=== PATIENT | male | born 1975 | race Caucasian/White ===

== ENCOUNTER 2024-02-09 04:38 | Day surgery (SDC) | payer OTHER ==
[2024-02-08 12:19] VITALS: BMI 27.4
[2024-02-09 15:21] VITALS: RESP 15
[2024-02-09 15:22] VITALS: BP 111/70; PULSE 64; TEMP 98
== END 2024-02-09 15:28 | disposition home or self-care (01) ==
LOC: JASU-ENDO 04:38
PROVIDERS: ATTEND Student in an Organized Health Care Education/Training Program
PROC: 0DBN8ZX Excision of Sigmoid Colon, Via Natural or Artificial Opening Endoscopic, Diagnostic (ICD-10-PCS; principal; 2024-02-09 14:15)
DX: Z12.11 Encounter for screening for malignant neoplasm of colon (principal); D12.5 Benign neoplasm of sigmoid colon
CPT/HCPCS: 88305-TC